=== PATIENT | female | born 1990 | race Two or more races ===

== ENCOUNTER → 2025-07-06 | Emergency (ER) | payer OTHER ==
[~2025-07-06] VITALS: Ht 152.4 cm; Wt 74.8 kg
[~2025-07-06] MED LIST: KETOROLAC TROMETHAMINE 30 MG VIAL IM ONE; TRAMADOL HCL 50 MG TABLET PO STA
== END | disposition home or self-care (01) ==
LOC: ER 18:18
DX: S82.292A Other fracture of shaft of left tibia, initial encounter for closed fracture (principal); W05.1XXA Fall from non-moving nonmotorized scooter, initial encounter; Y93.I9 Activity, other involving external motion; Y92.89 Other specified places as the place of occurrence of the external cause; Y99.8 Other external cause status; E03.8 Other specified hypothyroidism